=== PATIENT | female | born 1955 | race Caucasian/White ===

== ENCOUNTER 2021-05-19 12:24 | Outpatient (CLI) | payer MEDICARE, OTHER, SELFPAY ==
[2021-05-19 12:30] VITALS: BP 149/98; PULSE 81; RESP 16; TEMP 36.9; O2SAT 97; BMI 26.6
[2021-05-19 13:25] VITALS: BP 159/98; PULSE 81; RESP 18; TEMP 36.9; O2SAT 97
[2021-05-19 14:25] VITALS: BP 144/96; PULSE 86; RESP 16; TEMP 36.7; O2SAT 94
== END 2021-05-19 12:25 | disposition home or self-care (01) ==
LOC: OPS 12:30
PROVIDERS: PCP Internal Medicine; Visit Provider Nurse Practitioner Family
DX: U07.1 COVID-19 (principal)
CPT/HCPCS: 96365

== ENCOUNTER 2021-09-20 11:50 | Outpatient (CLI) | payer MEDICARE, OTHER, SELFPAY ==
--- NOTE | 2021-09-20 12:32 | MR_ITS ---
WS: [id number] MRI LEFT KNEE HISTORY: LEFT KNEE PAIN COMPARISON: None available. Anterior cruciate ligament: Intact. Posterior cruciate ligament: Intact. Medial collateral ligament: Increased T2 signal surrounding the MCL but no tear is identified. Partia l displacement from the joint line by extruded meniscus. Posterior lateral corner structures: Intact. Medial menisci: Partially extruded medial meniscus from the joint line. Within the extruded body of t he medial meniscus is marked increased signal consistent with a radial tear. Complex tear in the post erior horn extends to the superior and inferior articular surfaces. There is additional moderate incr eased T2 signal throughout the MCL with marked fraying along the surfaces. Additional increased signa l within the anterior horn. Lateral meniscus: Fraying along the articular surfaces. No definite tear is identified. Extensor mechanism: Distal quadriceps tendon and patellar tendons are intact. Fluid and soft tissue: Very small amount of fluid in the suprapatellar bursa. Mild soft tissue edema surrounding the knee. Greatest along the medial knee and femoral condyle. Small Proctor's cyst. Osseous and articular structures: Patellofemoral compartment: Near complete loss of cartilage involving the cartilage of the patella gr eatest along the medial patella. Multiple bilateral subchondral cystic changes. Moderate joint space narrowing. Medial compartment: Mild narrowing with near complete loss of cartilage along the tibial plateau and femoral condyle weightbearing surfaces. No marrow edema. Lateral compartment: Mild narrowing of the lateral compartment with moderate diffuse loss of cartilag e and near bone upon bone. There is a small subchondral cyst in the tibial plateau. MR/MR knee LT wo con* [id number] IMPRESSION: 1. Complex tear posterior horn medial meniscus involving both the superior and inferior articular surfaces. There is an additional radial tear suspected in t he body of the extruded medial meniscus. 2. Mild narrowing of the medial and lateral compartments with near complete lo ss of cartilage along the weightbearing surfaces. 3. Moderate chondromalacia patellofemoral compartment. Loss of cartilage with underlying subchondral marrow edema in the medial and lateral patella. 4. Increased fluid surrounding the MCL is thought to be related to joint disea se and not an MCL tear. 5. Small Proctor's cyst.
== END 2021-09-20 11:51 | disposition home or self-care (01) ==
PROVIDERS: PCP Internal Medicine; Visit Provider Emergency Medicine
DX: M25.562 Pain in left knee (principal); S83.232A Complex tear of medial meniscus, current injury, left knee, initial encounter; X58.XXXA Exposure to other specified factors, initial encounter; M94.262 Chondromalacia, left knee; M71.22 Synovial cyst of popliteal space [Baker], left knee
CPT/HCPCS: 73721

== ENCOUNTER 2021-11-14 14:36 | Outpatient (CLI) | payer MEDICARE, OTHER, SELFPAY ==
--- NOTE | 2021-11-14 14:42 | MM_ITS ---
WS: [id number] BILATERAL 3D TOMOSYNTHESIS DIGITAL SCREENING MAMMOGRAPHY WITH CAD CLINICAL INFORMATION: SCREENING HISTORY: Screening mammogram. No current complaints. COMPARISON: February 17, 2018 TECHNIQUE: Bilateral CC and MLO views. FINDINGS: Scattered fibroglandular densities bilaterally. No suspicious focal mass, asymmetry, calcifications, or architectural distortion. No evidence of malignancy. MM/[place] [id number] IMPRESSION: BI-RADS: 1-Negative FOLLOW UP: 1 Year Follow-up Recommend return to annual screening mammography.
== END 2021-11-14 14:37 | disposition home or self-care (01) ==
PROVIDERS: PCP Internal Medicine; Visit Provider Internal Medicine
DX: Z12.31 Encounter for screening mammogram for malignant neoplasm of breast (principal)
CPT/HCPCS: 77063; 77067

== ENCOUNTER 2022-02-20 14:30 | Outpatient (CLI) | payer MEDICARE, OTHER, SELFPAY ==
--- NOTE | 2022-02-20 | US_ITS ---
WS: [id number] THYROID ULTRASOUND HISTORY: HYPOTHYROIDISM COMPARISON: None available. Right lobe: 1.4 cm x 1.1 cm x 4.0 cm (w x ap x l). Volume: 3.2 cm3. Normal size and echotexture. No significant are dominant nodules are present. Left lobe: 1.4 cm x 1.0 cm x 3.7 cm (w x ap x l). Volume: 2.8 cm3. Normal size and echotexture. No significant or dominant nodules are present. Isthmus: 0.4 cm. US/US thyroid [id number] IMPRESSION: Normal thyroid ultrasound.
--- NOTE | 2022-02-20 14:44 | XR_ITS ---
WS: [id number] DEXA (DUAL ENERGY X-RAY ABSORPTIOMETRY) Bone mineral density was performed using a Terabitz machine. HISTORY: ASYMPTOMATIC POSTMENOPAUSAL STATUS COMPARISON: None available. Lumbar spine BMD (L1-L4): 1.066 g/cm2 T score: -1.0 Z score: 0.3 Total hip BMD: Left: 0.766 g/cm2. T score: -1.9 Z score: -0.9 Right: 0.724 g/cm2. T score: -2.3 Z score: -1.2 10 year probability of a major osteoporotic fracture is 10.9%. XR/XR DEXA axial skeleton* [id number] IMPRESSION: OSTEOPENIA based upon the WHO classification for females.
== END 2022-02-20 14:31 | disposition home or self-care (01) ==
PROVIDERS: PCP Internal Medicine; Visit Provider Internal Medicine
DX: Z78.0 Asymptomatic menopausal state (principal); M85.80 Other specified disorders of bone density and structure, unspecified site; E03.9 Hypothyroidism, unspecified
CPT/HCPCS: 76536; 77080

== ENCOUNTER 2022-03-29 06:00 | Outpatient (RCR) | payer MEDICARE, OTHER, SELFPAY | END 2022-04-28 23:59 | disposition home or self-care (01) | LOC: SPT 06:00 | PROVIDERS: PCP Internal Medicine; Visit Provider Student in an Organized Health Care Education/Training Program | DX: Z96.652 Presence of left artificial knee joint (principal) | CPT/HCPCS: 97110; 97161 ==

== ENCOUNTER 2022-04-29 06:00 | Outpatient (RCR) | payer MEDICARE, OTHER, SELFPAY | END 2022-05-29 23:59 | disposition home or self-care (01) | LOC: SPT 06:00 | PROVIDERS: PCP Internal Medicine; Visit Provider Student in an Organized Health Care Education/Training Program | DX: Z47.1 Aftercare following joint replacement surgery (principal); Z96.652 Presence of left artificial knee joint | CPT/HCPCS: 97110 ==

== ENCOUNTER 2022-05-30 06:00 | Outpatient (RCR) | payer MEDICARE, OTHER, SELFPAY | END 2022-06-11 16:29 | disposition home or self-care (01) | LOC: SPT 06:00 | PROVIDERS: PCP Internal Medicine; Visit Provider Student in an Organized Health Care Education/Training Program | DX: Z96.652 Presence of left artificial knee joint (principal) | CPT/HCPCS: 97110 ==

== ENCOUNTER 2022-11-23 11:04 | Outpatient (CLI) | payer MEDICARE, OTHER, SELFPAY ==
--- NOTE | 2022-11-23 11:17 | MM_ITS ---
WS: [id number] BILATERAL 3D TOMOSYNTHESIS DIGITAL SCREENING MAMMOGRAPHY WITH CAD CLINICAL INFORMATION: SCREENING HISTORY: Screening mammogram. No current complaints. COMPARISON: 2021 TECHNIQUE: Bilateral CC and MLO views. FINDINGS: Scattered fibroglandular densities bilaterally. No suspicious focal mass, asymmetry, calcifications, or architectural distortion. No evidence of malignancy. MM/[place] [id number] IMPRESSION: BI-RADS: 1-Negative FOLLOW UP: 1 Year Follow-up Recommend return to annual screening mammography.
== END 2022-11-23 11:05 | disposition home or self-care (01) ==
LOC: RAD 11:13 → MOBLMAM 11:16
PROVIDERS: PCP Internal Medicine; Visit Provider Internal Medicine
DX: Z12.31 Encounter for screening mammogram for malignant neoplasm of breast (principal)
CPT/HCPCS: 77063; 77067

== ENCOUNTER → 2023-05-27 15:07 | Outpatient (BNVA) | payer MEDICARE, OTHER, SELFPAY | PROVIDERS: PCP Internal Medicine; Visit Provider Podiatrist Foot & Ankle Surgery | DX: G57.91 Unspecified mononeuropathy of right lower limb (principal); M19.071 Primary osteoarthritis, right ankle and foot; M79.671 Pain in right foot; M79.672 Pain in left foot | CPT/HCPCS: 73630; 99203 ==

== ENCOUNTER → 2023-08-07 08:05 | Outpatient (BNVA) | payer MEDICARE, OTHER, SELFPAY | PROVIDERS: PCP Internal Medicine; Visit Provider Podiatrist Foot & Ankle Surgery | DX: M79.672 Pain in left foot; G57.91 Unspecified mononeuropathy of right lower limb; M19.071 Primary osteoarthritis, right ankle and foot | CPT/HCPCS: 99213 ==

== ENCOUNTER 2023-11-05 12:59 | Outpatient (CLI) | payer MEDICARE, SELFPAY ==
--- NOTE | 2023-11-05 13:15 | XR_ITS ---
WS: [email or web address] Cervical spine, 7 views including AP, both obliques, lateral in neutral, flexion and extension views, odontoid, 11/05/2023 Clinical Data: CERVICALGIA Comparison: None. Findings: No compression fractures are seen. There is degenerative disc narrowing at C5-C6 and C6-C7. There is no prevertebral soft tissue swelling. The odontoid is unremarkable. There is minimal neur al foraminal encroachment at C5-C6 and C6-C7. On flexion and extension there is no limitation of shelly on or subluxation. The soft tissues of the neck and the lung apices are normal. XR/XR cervical spine min 6V [id number] Impression: 1. Degenerative disc narrowing at C5-C6 and C6-C7 with minimal bilateral neural foraminal encroachment. 2. Negative for subluxation on flexion or extension.
== END 2023-11-05 13:00 | disposition home or self-care (01) ==
PROVIDERS: PCP Internal Medicine; Visit Provider Internal Medicine
DX: M54.2 Cervicalgia (principal); M48.02 Spinal stenosis, cervical region
CPT/HCPCS: 72052

== ENCOUNTER 2024-01-13 17:06 | Emergency (ER) | payer MEDICARE, SELFPAY ==
--- NOTE | 2024-01-13 17:07 | USR_ITS ---
PROCEDURE INFORMATION: Exam: US Duplex Right Lower Extremity Veins, Limited Exam date and time: 01/13/2024 5:29 PM Age: 68 years old Clinical indication: Pain; Leg, upper; Right; Additional info: Leg swelling, pain TECHNIQUE: Imaging protocol: Real-time duplex ultrasound of the right extremity with 2-D dawn scale, color Doppler flow and spectral waveform analysis including responses to compression and other maneuvers (when performed) with image documentation. Limited exam was focused on the right lower extremity veins. COMPARISON: [place] [id number] ORTH 05/27/2023 3:12 PM FINDINGS: Right deep veins: Unremarkable. The common femoral, femoral, proximal profunda femoral, popliteal, posterior tibial and peroneal veins are patent without thrombus. Normal Doppler waveforms. Normal compressibility and/or augmentation response. Superficial veins: Greater saphenous vein at the saphenofemoral junction is patent without thrombus. Soft tissues: Unremarkable. US/[place] [id number] IMPRESSION: No sonographic evidence of deep vein thrombosis.
[2024-01-13 17:22] VITALS: BP 161/108; PULSE 95; TEMP 36.9; O2SAT 98; BMI 27.1
--- NOTE | 2024-01-13 17:52 | XRR_ITS ---
PROCEDURE INFORMATION: Exam: XR Right Knee Exam date and time: 01/13/2024 6:25 PM Age: 68 years old Clinical indication: Pain; Knee; Right; Additional info: Atraumtic swelling, anterior knee pain, popliteal pain TECHNIQUE: Imaging protocol: Radiologic exam of the right knee. Views: 3 views. COMPARISON: [place] [id number] 01/13/2024 5:29 PM FINDINGS: Bones/joints: No radiographic evidence of acute fracture or dislocation. Alignment anatomic. Mild patellofemoral osteoarthrosis. Moderate effusion. Soft tissues: Grossly unremarkable. XR/XR knee RT 3V* [id number] IMPRESSION: Mild patellofemoral osteoarthrosis and moderate effusion.
--- NOTE | 2024-01-13 18:00 | ED_ITS ---
HPI - Extremity Problem 2 General: Chief complaint: Extremity Problem,Nontraumatic Stated complaint: right knee swelling and pain Time Seen by Provider: 01/13/24 17:27 Source: patient Mode of arrival: wheelchair Limitations: no limitations History of Present Illness: Patient is a 68-year-old female presenting to the emergency department complaining of atraumatic right knee pain and swelling beginning earlier today. Patient states she was seated outside when she noticed the symptoms, and she is distal anterior right thigh as well as to the popliteal space, and pain is reproducible to palpation. She also notes pain with walking. History of left knee replacement. Patient states she also felt sick, stating that she got nauseous after noticing the pain and swelling. No joint redness, radiation of pain, trauma, recent heavy lifting or twisting injury, or other historical factors or symptoms to note at this time. Noted to be afebrile in the emergency department, an ultrasound was obtained while patient in waiting room and this noted to be without DVT. MD Complaint: joint swelling and joint pain Onset (ago): hour(s) Pain Consistency: constant Location: right Radiation: none Exacerbating factors: range of motion, walking and palpation Associated symptoms: Deny chest pain, fever(s) or rash Related Data Home Medications Medication Instructions Recorded Confirmed atorvastatin 20 mg tablet 20 mg PO DAILY 05/27/23 08/07/23 levothyroxine 75 mcg tablet 75 mcg PO DAILY 05/27/23 08/07/23 (Synthroid) meloxicam 15 mg tablet 15 mg PO ONCE 05/27/23 08/07/23 Previous Rx's Medication Instructions Recorded prednisone 20 mg tablet 60 mg (3 x 20 mg) PO ONCE 5 days 01/13/24 #15 tabs Allergies Allergy/AdvReac Type Severity Reaction Status Date / Time Sulfa (Sulfonamide Allergy Intermediate ALGY-Hives Verified 01/13/24 17:26 Antibiotics) codeine Allergy Unknown Verified 01/13/24 17:26 Review of Systems 2 General: Reports: 10 or more systems reviewed and unremarkable except in HPI and below Const: Denies: fever(s) or chills Card: Denies: chest pain Resp: Denies: dyspnea or productive cough GI: Reports: nausea; Denies: abdominal pain, vomiting or diarrhea : Denies: flank pain Musc: Reports: joint pain (Right knee) and joint swelling (Right knee); Denies: neck pain, back pain, extremity pain, extremity swelling, joint redness, joint warmth, limited range of motion or muscle weakness Skin/Breast: Denies: rash Neuro: Denies: headache(s), numbness in extremities or weakness in extremities Physical Exam 2 Const: COMMON NORMALS: no acute distress, patient oriented x3, no limitations, healthy appearing, alert and well nourished HENMT: COMMON NORMALS: normocephalic and atraumatic HEAD & SCALP: n ormocephalic and atraumatic Neck/C-Spine: COMMON NORMALS: full ROM, supple and no meningeal signs Resp: COMMON NORMALS: normal respiratory effort, No use of accessory muscles and clear to auscultation bilaterally AUSCULTATION: clear to auscultation bilaterally Cardio: COMMON NORMALS: regular rate and regular rhythm RATE: regular rate RHYTHM: regular rhythm Extremity: COMMON NORMALS: full ROM, capillary refill normal and no clubbing, cyanosis or edema NARRATIVE EXTREMITY EXAM: Tenderness to palpation just lateral to the right quad tendon, with some mild swelling noted. She is also tender to palpation of the distal right hamstring tendon. No palpable cord or mass in the popliteal space. No appreciable joint effusion with anterior knee testing. No joint laxity. No obvious signs of trauma or deformity. Neuro: COMMON NORMALS: patient oriented x3, moves all extremities, no focal motor deficits and no sensory deficits noted SENSORIUM/ORIENTATION: Yes alert MENINGEAL SIGNS: Yes no meningeal signs Skin: COMMON NORMALS: no rashes or lesions noted GENERAL SKIN EXAM: no rashes or lesions noted Course 2 Vital Signs: Vital signs: Vital Signs Temperature 98.4 F 01/13/24 17:22 Pulse Rate 95 01/13/24 17:22 Blood Pressure 161/108 01/13/24 17:22 Pulse Oximetry 98 01/13/24 17:22 Oxygen Delivery Me thod Room Air 01/13/24 17:22 MDM - Extremity (Nontraumatic) Medical Decision Making Patient presented with atraumatic right knee swelling and pain beginning earlier today. Vital stable. She did note some nausea, labs were obtained to rule out any systemic signs of infection, and her labs are all negative. Ultrasound obtained did not show any signs of a DVT. Additionally an x-ray showed some osteoarthritis with a joint effusion, and at this time diagnosis favors arthritis flare, potentially a Proctor's cyst rupture due to the amount of pain in her popliteal space. Because of this we will treat with steroids and NSAIDs, as well as other conservative therapies such as ice. Will give shot of Decadron here prior to discharge, instructed her to follow-up with primary care for further evaluation. States that her last DEXA scan was normal. All other questions or concerns addressed at this time. Lab Data 01/13/24 18:10 01/13/24 18:10 Radiology Impressions Venous Duplex 01/13/24 17:07 IMPRESSION: No sonographic evidence of deep vein thrombosis. Knee X-Ray 01/13/24 17:52 IMPRESSION: Mild patellofemoral osteoarthrosis and moderate effusion. Laboratory Results WBC 12.48 10^3/uL (3.29-11.43) H 01/13/24 18:10 RBC 4.68 10^6/uL (3.85-5.65) 01/13/24 18:10 Hgb 12.90 g/dL (11.27-16.99) 01/13/24 18:10 Hct 40.1 % (36-47) 01/13/24 18:10 MCV 85.7 fl (85-98) 01/13/24 18:10 MCH 27.6 pg (27-33) 01/13/24 18:10 MCHC 32.2 g/dL (30-55) 01/13/24 18:10 RDW 13.1 % (12.1-15.1) 01/13/24 18:10 Plt Count 320 10^3/cmm (157-399) 01/13/24 18:10 MPV 10.2 fL (7.4-10.4) 01/13/24 18:10 Neut % (Auto) 72.6 % 01/13/24 18:10 Lymph % (Auto) 19.5 % 01/13/24 18:10 [place] % (Auto) 6.0 % 01/13/24 18:10 Eos % (Auto) 0.7 % 01/13/24 18:10 Baso % (Auto) 0.9 % 01/13/24 18:10 Neut # (Auto) 9.06 10^3/uL (1.8-7.7) H 01/13/24 18:10 Lymph # (Auto) 2.4 10^3/uL (0.8-4.8) 01/13/24 18:10 [place] # (Auto) 0.8 10^3/uL (0.2-0.9) 01/13/24 18:10 Eos # (Auto) 0.1 10^3/uL (0.0-0.8) 01/13/24 18:10 Baso # (Auto) 0.1 10^3/uL (0.0-0.1) 01/13/24 18:10 Nucleated RBC % (auto) 0 % 01/13/24 18:10 Nucleated RBCs # 0.0 /100WBC 01/13/24 18:10 ESR 22 mm/hr (0-15) H 01/13/24 18:10 Sodium 139 mmol/L (136-145) 01/13/24 18:10 Potassium 4.2 mmol/L (3.5-5.1) 01/13/24 18:10 Chloride 103 mmol/L (98-107) 01/13/24 18:10 Carbon Dioxide 24 mmol/L (22-29) 01/13/24 18:10 Anion Gap 16.2 (5-19) 01/13/24 18:10 BUN 20 mg/dL (8-23) 01/13/24 18:10 Creatinine 0.7 mg/dL (0.5-0.9) 01/13/24 18:10 GFR Calculation 83.2 mL/min (90-130) L 01/13/24 18:10 Glucose 99 mg/dL (65-115) 01/13/24 18:10 Calculated Osmolality 291 mOsm/kg (285-295) 01/13/24 18:10 Calcium 9.4 mg/dL (8.5-10.5) 01/13/24 18:10 Total Bilirubin 0.3 mg/dL (0.15-1.2) 01/13/24 18:10 AST 24 U/L (0-32) 01/13/24 18:10 ALT 20 U/L (0-33) 01/13/24 18:10 Alkaline Phosphatase 126 U/L (35-105) H 01/13/24 18:10 C-Reactive Protein 3.0 mg/L (0.0-4.9) 01/13/24 18:10 Total Protein 7.8 g/dL (6.6-8.7) 01/13/24 18:10 Albumin 4.8 g/dL (3.5-5.2) 01/13/24 18:10 Globulin 3.0 g/dL (1.3-4.6) 01/13/24 18:10 All radiology interpretation(s) finalized by discharge Discharge Plan Discharge Patient Disposition: Home Clinical Impression: Effusion of right knee Condition: Stable Prescriptions: New prednisone 20 mg tablet 60 mg PO ONCE 5 Days Qty: 15 0RF No Action levothyroxine [Synthroid] 75 mcg tablet 75 mcg PO DAILY atorvastatin 20 mg tablet 20 mg PO DAILY meloxicam 15 mg tablet 15 mg PO ONCE Discharge Orders: Discharge ED (Routine); Ordered 01/13/24 Ordered By: Isidoro Min Referrals: Yasmin Snyder MD [Primary Care Provider] - Discharge Diet: Usual diet Discharge Activity: Increase activity as tolerated Patient Instructions: Osteoarthritis (ED), Swollen Knee Joint (ED) Activity Restrictions/Additional Instructions: Follow-up with your primary care provider as discussed for further outpatient evaluation. Take steroids. Gentle range of motion exercises as tolerated. Please take ibuprofen for pain relief, and you may use ice. Return with any new or worsening. Coding Level of Care Code ED Site Worker for Jerry Mckeon
[2024-01-13] MEDS: ibuprofen 600 mg Tablet 800 MG PO (18:05)
[2024-01-13 18:34] LABS: Basophils # 0.1 10^3/uL (0.0-0.1); Basophils % 0.9 %; Eosinophils # 0.1 10^3/uL (0.0-0.8); Eosinophils % 0.7 %; Hematocrit 40.1 % (36-47); Lymphocytes # 2.4 10^3/uL (0.8-4.8); Lymphocytes % 19.5 %; Mean Corpuscular HGB Conc 32.2 g/dL (30-55); Mean Corpuscular Hemoglobin 27.6 pg (27-33); Mean Corpuscular Volume 85.7 fl (85-98); Mean Platelet Volume 10.2 fL (7.4-10.4); Monocytes # 0.8 10^3/uL (0.2-0.9); Neutrophils # 9.06 10^3/uL (1.8-7.7); Neutrophils % 72.6 %; Nucleated Red Blood Cells % 0 %; Platelet Count 320 10^3/cmm (157-399); Red Blood Count 4.68 10^6/uL (3.85-5.65); Red Cell Distribution Width 13.1 % (12.1-15.1); White Blood Count 12.48 10^3/uL (3.29-11.43)
[2024-01-13 18:44] LABS: Erythrocyte Sedimentation Rate 22 mm/hr (0-15)
[2024-01-13 18:56] LABS: Alanine Aminotransferase 20 U/L (0-33); Albumin Level 4.8 g/dL (3.5-5.2); Alkaline Phosphatase 126 U/L (35-105); Anion Gap 16.2 (5-19); Aspartate Amino Transferase 24 U/L (0-32); Blood Urea Nitrogen 20 mg/dL (8-23); Calcium 9.4 mg/dL (8.5-10.5); Carbon Dioxide 24 mmol/L (22-29); Chloride 103 mmol/L (98-107); Creatinine Clr Calc Pharmacy 65.3302; Glomerular Filtration Rate 83.2 mL/min (90-130); Glucose 99 mg/dL (65-115); Osmolality Calculated 291 mOsm/kg (285-295); Potassium 4.2 mmol/L (3.5-5.1); Sodium 139 mmol/L (136-145); Total Bilirubin 0.3 mg/dL (0.15-1.2); Total Protein 7.8 g/dL (6.6-8.7)
[2024-01-13] MEDS: dexamethasone 10 mg/mL INJ IM (19:09)
[2024-01-13 19:14] VITALS: BP 159/98; PULSE 85; O2SAT 98
== END 2024-01-13 19:15 | disposition home or self-care (01) ==
PROVIDERS: Emergency Provider Physician Assistant; PCP Internal Medicine
DX: M25.461 Effusion, right knee (principal)
CPT/HCPCS: 36415; 73562; 80053; 85025; 85651; 86140; 93971; 96372; 99284; J1100

== ENCOUNTER 2024-04-13 09:03 | Outpatient (CLI) | payer MEDICARE, OTHER, SELFPAY ==
--- NOTE | 2024-04-13 09:11 | XRR_ITS ---
PROCEDURE INFORMATION: Exam: XR Chest Exam date and time: 04/13/2024 9:24 AM Age: 68 years old Clinical indication: Patient HX: Persistent worsening cough since January TECHNIQUE: Imaging protocol: Radiologic exam of the chest. Views: 2 views. COMPARISON: CR XR cervical spine min 6V [id number] 11/05/2023 1:32 PM FINDINGS: Lungs: Unremarkable. No consolidation. Pleural spaces: Unremarkable. No pleural effusion. No pneumothorax. Heart/Mediastinum: Unremarkable. No cardiomegaly. Bones/joints: Unremarkable. XR/XR chest 2V* [id number] IMPRESSION: No acute findings.
== END 2024-04-13 09:04 | disposition home or self-care (01) ==
LOC: RAD 09:08
PROVIDERS: PCP Internal Medicine; Visit Provider Internal Medicine
DX: R05.8 Other specified cough (principal)
CPT/HCPCS: 71046

== ENCOUNTER 2024-05-04 10:21 | Outpatient (CLI) | payer MEDICARE, OTHER, SELFPAY ==
--- NOTE | 2024-05-04 10:25 | CT_ITS ---
WS: [email or web address] CT NECK WITH CONTRAST HISTORY: NECK MASS TECHNIQUE: Contiguous 2 mm axial images are performed through the neck with intravenous contrast. Sag ittal and coronal reformats are also submitted. All CT scans at [facility] use at least one o f these dose optimization techniques: automated exposure control; mA and/or kV adjustment per patient size (includes targeted exams where dose is matched to clinical indication); or iterative reconstruc tion. CONTRAST: CONTRAST: Omnipaque 350; 100 mL IV. DLP: 155.81 mGy.cm COMPARISON: None available. Markers placed along the LEFT neck. The marker is directly over the LEFT external jugular vein. There are a few small cervical chain lymph nodes deep to the sternocleidomastoid muscle at this location a lso. Nasopharynx, oropharynx, hypopharynx and larynx are unremarkable. No soft tissue masses or abnormal e nhancement. Torus tubarius and fossa of Rosenmuller and parapharyngeal fat are normal. Bilateral ovoid cervical chain lymph nodes are identified. Lymph nodes are less than a centimeter in diameter. Thyroid gland and salivary glands are normally enhancing with no masses. No osseous abnormalities. Visualized portions of the skull base demonstrate no abnormalities. Orbits and globes are within norm al limits. No soft tissue masses. Visualized paranasal sinuses and mastoid air cells are normal. Lung apices are clear. CT/CT neck w con* [id number] IMPRESSION: 1. Site marker is placed along the LEFT lateral neck at the site of the palpab le abnormality. Just deep to the marker is the LEFT external jugular vein. Ther e are a few small cervical chain lymph nodes also at this location. 2. No solid soft tissue mass. 3. No lymphadenopathy.
[2024-05-04 10:56] LABS: Blood Urea Nitrogen 12 mg/dL (8-23); Glomerular Filtration Rate 71.3 mL/min (90-130)
[2024-05-04] MEDS: iohexol 350 mg/mL 500 mL Btl (per mL) IV (11:08)
== END 2024-05-04 10:22 | disposition home or self-care (01) ==
LOC: RAD 10:22
PROVIDERS: Radiology Diagnostic Radiology; PCP Internal Medicine; Visit Provider Internal Medicine
DX: R22.1 Localized swelling, mass and lump, neck (principal)
CPT/HCPCS: 70491; 82565; 84520

== ENCOUNTER 2024-10-07 11:14 | Outpatient (CLI) | payer MEDICARE, OTHER, SELFPAY ==
--- NOTE | 2024-10-07 11:17 | MM_ITS ---
WS: [email or web address] BILATERAL SCREENING DIGITAL TOMOSYNTHESIS MAMMOGRAM WITH CAD HISTORY: SCREEN COMPARISON: 11/23/2022, 11/14/2021 Bilateral CC and MLO views with tomosynthesis and synthetic mammography submitted. Computer aided detection analyzed. Breast composition: There are scattered areas of fibroglandular density. No suspicious masses, microcalcifications or architectural distortion. MM/MM scr BI tomosynthesis [id number] IMPRESSION: BI-RADS: 2 - Benign. FOLLOW UP: 1 Year Follow-up
== END 2024-10-07 11:15 | disposition home or self-care (01) ==
PROVIDERS: PCP Internal Medicine; Visit Provider Internal Medicine
DX: Z12.31 Encounter for screening mammogram for malignant neoplasm of breast (principal); R92.323 Mammographic fibroglandular density, bilateral breasts
CPT/HCPCS: 77063; 77067

== ENCOUNTER 2025-01-04 10:29 | Outpatient (CLI) | payer MEDICARE, OTHER, SELFPAY ==
--- NOTE | 2025-01-04 10:36 | XR_ITS ---
WS: [email or web address] Thoracic spine, 5 views, 01/04/2025 Clinical Data: DEGENERATION OF THORACIC INTERVERTEBRAL DISC Comparison: None. Findings: No compression fractures are seen. The disc heights are normal. There is osteoarthritic spurring of all of the mid and lower thoracic vertebral bodies. The paravertebral regions are normal. XR/XR thoracic spine min 4V [id number] Impression: Osteoarthritis of the mid and lower thoracic vertebral bodies.
--- NOTE | 2025-01-04 10:53 | XR_ITS ---
WS: [email or web address] Cervical spine, 7 views including AP, both obliques, lateral views in neutral, flexion and extension, odontoid, 01/04/2025 Clinical Data: CERVICALGIA,DEGENERATIVE DISC DISEASE LUMBAR SPINE Comparison: Cervical spine, 11/05/2023 Findings: No compression fractures are seen. There is minimal disc narrowing at C5-C6 and C6-C7. No instability occurs on flexion or extension. There is minimal foraminal encroachment at C5-C6 and C6-C7. There is no prevertebral soft tissue swelling. The odontoid is unremarkable. The soft tissues of the neck and the lung apices are normal. XR/XR cervical spine min 6V [id number] Impression: No change from previous cervical spine.
--- NOTE | 2025-01-04 10:53 | XR_ITS ---
WS: [email or web address] Lumbar spine, 5 views including both obliques, 01/04/2025 Clinical Data: CERVICALGIA,DEGENERATIVE DISC DISEASE LUMBAR SPINE Comparison: None. Findings: No compression fractures or subluxation is seen. There is degenerative disc narrowing at L3-L4, L4-L5 and L5-S1. The transverse processes and SI joints are normal. The obliques show no spondylolysis. There is a dextroscoliosis. XR/XR lumbar spine min 4V [id number] Impression: 1. Degenerative disc narrowing at L3-L4, L4-L5 and L5-S1. 2. Dextroscoliosis.
== END 2025-01-04 10:30 | disposition home or self-care (01) ==
LOC: RAD 10:32
PROVIDERS: PCP Internal Medicine; Visit Provider Internal Medicine
DX: M51.34 Other intervertebral disc degeneration, thoracic region (principal); M51.17 Intervertebral disc disorders with radiculopathy, lumbosacral region; M48.07 Spinal stenosis, lumbosacral region; M41.86 Other forms of scoliosis, lumbar region; M51.369 Other intervertebral disc degeneration, lumbar region without mention of lumbar back pain or lower extremity pain; M50.322 Other cervical disc degeneration at C5-C6 level; M50.323 Other cervical disc degeneration at C6-C7 level; M47.814 Spondylosis without myelopathy or radiculopathy, thoracic region
CPT/HCPCS: 72052; 72074; 72110